=== PATIENT | male | born 1965 | race Two or more races ===

== ENCOUNTER 2023-02-20 19:21 | Emergency (ER) | payer OTHER ==
[~2023-02-20] VITALS: Ht 167.6 cm; Wt 136.1 kg
[2023-02-20] MEDS ORDERED: CORTISPORIN EAR10 M1 OTIC (21:15)
== END 2023-02-20 21:24 | disposition home or self-care (01) ==
LOC: ER 19:21
DX: H60.8X3 Other otitis externa, bilateral (principal); E11.9 Type 2 diabetes mellitus without complications; I10 Essential (primary) hypertension
CPT/HCPCS: 96372; 99284; J0696; J1100